=== PATIENT | female | born 1980 | race Caucasian/White ===

== ENCOUNTER 2018-07-06 12:53 | Emergency (ER) | payer BC, SELFPAY ==
[2018-07-06] MEDS ORDERED: ONDANSETRON 4 MG/2 ML VIAL ONE (13:13)
[2018-07-06] MEDS ORDERED: MORPHINE 4 MG/ML SYR ONE ×2 (13:13→13:49)
[2018-07-06] MEDS ORDERED: NA CHLORIDE 0.9% 1,000 ML ONE ×2 (13:13→15:36)
[2018-07-06 13:25] LABS: Absolute Lymphocytes (CBC) 1.2 K/uL (0.7-4.9); Absolute Monocytes 0.7 K/uL (0.1-1.3); Absolute Neutrophil 9.2 K/uL (1.8-8.0); Basophils % 0.3 % (0-1.3); Eosinophils % 1.1 % (0-4.4); Hematocrit 49.1 % (36.0-45.0); Lymphocytes % 10.8 % (15.3-44.8); MCH 29.8 pg (27.0-35.0); MCV 90.8 fL (80-100); MPV 9.5 fL (7.6-11.3); RBC Red Blood Cell Count 5.41 M/uL (3.86-4.86)
[2018-07-06 13:42] LABS: Albumin 4.3 g/dL (3.4-5.0); Bilirubin Direct 0.2 mg/dL (0-0.2); Bilirubin Total 0.5 mg/dL (0.2-1.0); Protein, Total 8.9 g/dL (6.4-8.2)
[2018-07-06] MEDS ORDERED: PROMETHAZINE 25 MG/ML VIAL ONE (14:45)
[2018-07-06 15:05] LABS: Urine Blood TRACE (NEG); Urine Glucose NEGATIVE (NEG); Urine Protein 1+ (NEG); Urine Specific Gravity 1.015 (1.005-1.030); Urine pH 8.5 (5.0-7.0)
--- NOTE | 2018-07-06 15:13 | RAD REPORT ---
EXAM DESCRIPTION: CT - Stone Protocol - 07/06/2018 2:56 pm CLINICAL HISTORY: Abdominal pain. Right flank pain COMPARISON: November 2017 TECHNIQUE: Computed axial tomography of the abdomen pelvis was obtained without oral or IV contrast. Lack of IV and oral contrast limits evaluation of solid organs, bowel, and vessels. Coronal reformat jacoby images were obtained and reviewed. All CT scans are performed using dose optimization technique as appropriate and may include automated exposure control or mA/KV adjustment according to patient size. FINDINGS: A right renal calculus is not seen. An ureteral calculus is not noted. A bladder calculus is not present. Two tiny nonobstructing left renal calculi are noted. The liver, spleen, pancreas and adrenals appear grossly normal An IUD is in place. A minimal amount of free fluid is noted. The appendix is not clearly seen. IMPRESSION: Nonobstructing left renal calculi
[2018-07-06 15:17] LABS: Urine Bacteria <20 /HPF (<20); Urine Culture Reflex Order NOT NEEDED; Urine Mucus 4+ /HPF (NONE SEEN); Urine RBC <5 /HPF (NONE SEEN)
[2018-07-06] MEDS ORDERED: MEPERIDINE HCL 50 MG/ML AMP ONE (15:44)
--- NOTE | 2018-07-06 16:05 | ER ---
Nurse's Notes [facility] Name: Huy Barba Age: 37 yrs Sex: Female : 1980 Arrival Date: 07/06/2018 Time: 12:55 Bed 7 Private MD: Katie Sexton C Diagnosis: Nephrolithiasis Presentation: 07/06 13:04 Presenting complaint: Patient states: Right flank pain that started this AM with N/V. aj Reports no urine output since yesterday. Transition of care: patient was not received from another setting of care. Onset of symptoms was July 06, 2018. Risk Assessment: Do you want to hurt yourself or someone else? Patient reports no desire to harm self or others. Initial Sepsis Screen: Does the patient meet any 2 criteria? No. Patient's initial sepsis screen is negative. Does the patient have a suspected source of infection? No. Patient's initial sepsis screen is negative. Care prior to arrival: None. 13:04 Method Of Arrival: Wheelchair 13:04 Acuity: GILMER 3 aj Triage Assessment: 13:05 General: Appears in no apparent distress. uncomfortable, Behavior is calm, cooperative, aj appropriate for age. Pain: Complains of pain in posterior aspect of right lateral abdomen and anterior aspect of right lateral abdomen. Neuro: Level of Consciousness is awake, alert, obeys commands, Oriented to person, place, time, situation, Appropriate for age. Respiratory: Airway is patent Respiratory effort is even, unlabored, Respiratory pattern is regular, symmetrical. GI: Abdomen is non-distended, obese. GI: Reports nausea, vomiting. : Reports pain in right flank(s). : Reports. Derm: Skin is intact, is healthy with good turgor, Skin is pink, warm \T\ dry. normal. 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 - Social history:: Smoking status: Patient uses tobacco products, smokes one-half pack cigarettes per day. - Ebola Screening: : Patient negative for fever greater than or equal to 101.5 degrees Fahrenheit, and additional compatible Ebola Virus Disease symptoms Patient denies exposure to infectious person Patient denies travel to an Ebola-affected area in the 21 days before illness onset No symptoms or risks identified at this time. - Family history:: not pertinent. - Hospitalizations: : No recent hospitalization is reported. Screenin:08 Abuse screen: Denies threats or abuse. Nutritional screening: No deficits noted. tw2 Tuberculosis screening: No symptoms or risk factors identified. Fall Risk None identified. Assessment: 13:08 GI: Bowel sounds present X 4 quads. Abd is soft Abdomen is tender to palpation in right cc3 mid back and anterior aspect of right lateral abdomen and posterior aspect of right lateral abdomen. 13:35 Reassessment: informed Dr. Galeano that patient still cannot pass urine, that patient cc3 feels bloated, and that the right flank pain scale is unchanged and he's aware. 13:35 Reassessment: No changes from previously documented assessment. Patient and/or family cc3 updated on plan of care and expected duration. Pain level reassessed. Patient is alert, oriented x 3, equal unlabored respirations, skin warm/dry/pink. 14:40 Reassessment: Patient and/or family updated on plan of care and expected duration. Pain cc3 level reassessed. Patient is alert, oriented x 3, equal unlabored respirations, skin warm/dry/pink. still in pain; straight cath done;. 14:52 Reassessment: wheeled to CT:. cc3 15:15 Reassessment: back from CT;. hj 15:48 Reassessment: Patient and/or family updated on plan of care and expected duration. Pain hj level reassessed. Patient is alert, oriented x 3, equal unlabored respirations, skin warm/dry/pink. medicated as ordered;. 16:30 Reassessment: Patient and/or family updated on plan of care and expected duration. Pain hj level reassessed. Patient is alert, oriented x 3, equal unlabored respirations, skin warm/dry/pink. D/Cinstructions given;. Vital Signs: 13:05 BP 119 / 73; Pulse 99; Resp 22; Temp 97.7; Pulse Ox 96% on R/A; Weight 83.91 kg; Height aj 5 ft. 4 in. (162.56 cm); 13:45 BP 119 / 97; Pulse 65; Resp 22; Pulse Ox 99% on R/A; Pain 8/10; cc3 14:52 BP 130 / 72; Pulse 67; Resp 18; Pulse Ox 100% on R/A; cc3 15:49 BP 116 / 75; Pulse 69; Resp 18; Pulse Ox 100% on R/A; hj 13:05 Body Mass Index 31.75 (83.91 kg, 162.56 cm) ED Course: 12:55 Patient arrived in ED. mr 12:56 Katie Sexton MD is Private Physician. mr 13:02 Carlos Galeano MD is Attending Physician. rn 13:02 Jameson Zhang PA is PHCP. cp 13:04 Triage completed. aj 13:05 Arm band placed on left wrist. Patient placed in an exam room, on a stretcher. aj 13:07 Lakesha Oneill is Primary Nurse. cc3 13:08 Bed in low position. Call light in reach. Pulse ox on. NIBP on. tw2 13:08 Inserted saline lock: 22 gauge in right antecubital area, using aseptic technique. tw2 Blood collected. 13:35 Radiology exam delayed due to test not completed at this time. 13:57 Test, Serum Sent. cc3 14:45 Bladder scan completed. 40 ml. cc3 14:46 Straight cath inserted, using sterile technique, Returned ellie urine. Patient cc3 tolerated well. 14:50 Urine Microscopic Only Sent. cc3 14:54 CT completed. Patient tolerated procedure well. Patient moved to CT via wheelchair. Patient moved back from CT. 14:55 CT Stone Protocol In Process Unspecified. EDMS 16:05 Selene Campbell MD is Referral Physician. rn 16:29 No provider procedures requiring assistance completed. IV discontinued, intact, hj bleeding controlled, No redness/swelling at site. Pressure dressing applied. Administered Medications: 13:08 Drug: NS 0.9% 1000 ml Route: IV; Rate: 1000 ml; Site: right antecubital; cc3 16:32 Follow up: IV Status: Completed infusion; IV Intake: 1500ml hj 13:20 Drug: Zofran 4 mg Route: IVP; Site: right antecubital; cc3 13:54 Follow up: Response: No adverse reaction; Nausea is decreased cc3 13:23 Drug: morphine 4 mg Route: IVP; Site: right antecubital; cc3 13:43 Follow up: Response: No adverse reaction; Pain is unchanged, physician notified cc3 13:45 Drug: morphine 4 mg Route: IVP; Site: right antecubital; cc3 14:02 Follow up: Response: No adverse reaction; Pain is decreased hj 14:44 Drug: Phenergan 25 mg Route: IVP; Site: right antecubital; cc3 14:44 Follow up: Response: No adverse reaction; Nausea is decreased cc3 15:29 Drug: NS 0.9% 1000 ml Route: IV; Rate: 1000 ml; Site: right antecubital; hj 16:31 Follow up: IV Status: Order to discontinue infusion; IV Intake: 700ml hj 15:35 Drug: Demerol 50 mg Route: IVP; Site: right antecubital; hj 16:31 Follow up: Response: No adverse reaction; Pain is decreased hj Point of Care Testing: Urine : 14:45 hCG Reading: Negative; cc3 Intake: 16:31 IV: 700ml; Total: 700ml. hj 16:32 IV: 1500ml; Total: 2200ml. hj Outcome: 16:05 Discharge ordered by . rn 16:30 Discharged to home ambulatory, with family. hj 16:30 Condition: stable 16:30 Discharge instructions given to patient, family, Instructed on discharge instructions, follow up and referral plans. medication usage, Demonstrated understanding of instructions, follow-up care, medications, Prescriptions given X 4. 16:33 Patient left the ED. hj Signatures: Dispatcher [employer] EDMS Jumana Johnson RN RN aj Rivera, Maria mr BeattyApril Roman, MD MD rn Joaquin, Henry, RN RN hj Page, Corey, PA PA cp Wise, Tara, RN RN tw2 Lakesha Oneill cc3
--- NOTE | 2018-07-06 16:05 | EDPHYS ---
Physician Documentation [facility] Name: Huy Barba Age: 37 yrs Sex: Female : 1980 Arrival Date: 07/06/2018 Time: 12:55 Bed 7 Private MD: Katie Sexton C ED Physician Carlos Galeano HPI: 07/06 13:09 This 37 yrs old Female presents to ER via Wheelchair with complaints of rn Possible Kidney Stone. 13:09 The patient complains of pain in the right mid back. The pain does not radiate. Onset: rn The symptoms/episode began/occurred this morning. Modifying factors: The symptoms are alleviated by nothing. the symptoms are aggravated by nothing. Severity of pain: At its worst the pain was moderate in the emergency department the pain is unchanged. The patient has experienced similar episodes in the past. Reports right flank pain, non-radiating, assoc with nausea/vomiting/diarrhea/decreased urine production. + hx of kidney stones.. 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 - Social history:: Smoking status: Patient uses tobacco products, smokes one-half pack cigarettes per day. - Ebola Screening: : Patient negative for fever greater than or equal to 101.5 degrees Fahrenheit, and additional compatible Ebola Virus Disease symptoms Patient denies exposure to infectious person Patient denies travel to an Ebola-affected area in the 21 days before illness onset No symptoms or risks identified at this time. - Family history:: not pertinent. - Hospitalizations: : No recent hospitalization is reported. ROS: 13:09 Constitutional: Negative for fever, chills, and weight loss, Eyes: Negative for injury, rn pain, redness, and discharge, Cardiovascular: Negative for chest pain, palpitations, and edema, Respiratory: Negative for shortness of breath, cough, wheezing, and pleuritic chest pain, Abdomen/GI: + nausea/vomiting/diarrhea Back: + right flank pain MS/Extremity: Negative for injury and deformity, Skin: Negative for injury, rash, and discoloration, Neuro: Negative for headache, tingling, and seizure. Exam: 13:09 Constitutional: This is a well developed, well nourished patient who is awake, alert, rn + crying and trying to throw up Head/Face: Normocephalic, atraumatic. ENT: MMM Cardiovascular: Regular rate. No gallops, murmurs, or rubs. No pulse deficits. Respiratory: hyperventilating, clear bilateral lung khoury Abdomen/GI: soft, non-tender Back: + right CVAT MS/ Extremity: Pulses equal, no cyanosis. Neurovascular intact. Full, normal range of motion. Equal circumference. Neuro: Awake and alert, GCS 15, oriented to person, place, time, and situation. Cranial nerves II-XII grossly intact. Motor strength 5/5 in all extremities. Sensory grossly intact. Cerebellar exam normal. Normal gait. Vital Signs: 13:05 BP 119 / 73; Pulse 99; Resp 22; Temp 97.7; Pulse Ox 96% on R/A; Weight 83.91 kg; Height aj 5 ft. 4 in. (162.56 cm); 13:45 BP 119 / 97; Pulse 65; Resp 22; Pulse Ox 99% on R/A; Pain 8/10; cc3 14:52 BP 130 / 72; Pulse 67; Resp 18; Pulse Ox 100% on R/A; cc3 15:49 BP 116 / 75; Pulse 69; Resp 18; Pulse Ox 100% on R/A; hj 13:05 Body Mass Index 31.75 (83.91 kg, 162.56 cm) aj MDM: 13:02 Patient medically screened. rn 15:38 ED course: Pt improved, not pain free but improved, states has had about 5-6 episodes rn similar to this with kidney stones, this is identical to 1 previous episode with stones when she got this bad, CT stone protocol shows bilateral nephrolithiasis but no stones in ureter, no other acute pathology. Not . Will redose pain meds, given more fluids for dehydration, nausea is resolved, will dc home. . 16:04 Differential diagnosis: nephrolithiasis, pyelonephritis, UTI. Data reviewed: vital rn signs, nurses notes, and as a result, I will discharge patient. Counseling: I had a detailed discussion with the patient and/or guardian regarding: the historical points, exam findings, and any diagnostic results supporting the discharge/admit diagnosis, lab results, radiology results, the need for outpatient follow up, to return to the emergency department if symptoms worsen or persist or if there are any questions or concerns that arise at home. Response to treatment: the patient's symptoms have markedly improved after treatment, and as a result, I will discharge patient. Special discussion: I discussed with the patient/guardian in detail that at this point there is no indication for admission to the hospital. It is understood, however, that if the symptoms persist or worsen the patient needs to return immediately for re-evaluation. Based on the history and exam findings, there is no indication for further emergent testing or inpatient evaluation. I discussed with the patient/guardian the need to see the urologist for further evaluation of the symptoms. 07/06 13:08 Order name: Basic Metabolic Panel; Complete Time: 13:56 07/06 13:08 Order name: CBC with Diff; Complete Time: 13:42 rn 07/06 13:08 Order name: Hepatic Function; Complete Time: 13:56 rn 07/06 13:08 Order name: Lipase; Complete Time: 13:56 rn 07/06 13:08 Order name: Urine Microscopic Only; Complete Time: 15:35 rn 07/06 13:09 Order name: Urine Culture rn 07/06 13:09 Order name: CT Stone Protocol; Complete Time: 15:16 rn 07/06 13:42 Order name: Test, Serum; Complete Time: 15:07 rn 07/06 14:50 Order name: Urine Dipstick--Ancillary (enter results); Complete Time: 15:07 ag 07/06 14:50 Order name: Urine --Ancillary (enter results); Complete Time: 15:07 ag 07/06 13:08 Order name: Urine Test (obtain specimen); Complete Time: 14:50 rn 07/06 13:08 Order name: IV Saline Lock; Complete Time: 13:13 rn 07/06 13:08 Order name: Labs collected and sent; Complete Time: 13:24 rn 07/06 13:08 Order name: Urine Dipstick-Ancillary (obtain specimen); Complete Time: 14:50 rn 07/06 14:50 Order name: Straight Cath; Complete Time: 14:51 cc3 Administered Medications: 13:08 Drug: NS 0.9% 1000 ml Route: IV; Rate: 1000 ml; Site: right antecubital; cc3 16:32 Follow up: IV Status: Completed infusion; IV Intake: 1500ml hj 13:20 Drug: Zofran 4 mg Route: IVP; Site: right antecubital; cc3 13:54 Follow up: Response: No adverse reaction; Nausea is decreased cc3 13:23 Drug: morphine 4 mg Route: IVP; Site: right antecubital; cc3 13:43 Follow up: Response: No adverse reaction; Pain is unchanged, physician notified cc3 13:45 Drug: morphine 4 mg Route: IVP; Site: right antecubital; cc3 14:02 Follow up: Response: No adverse reaction; Pain is decreased hj 14:44 Drug: Phenergan 25 mg Route: IVP; Site: right antecubital; cc3 14:44 Follow up: Response: No adverse reaction; Nausea is decreased cc3 15:29 Drug: NS 0.9% 1000 ml Route: IV; Rate: 1000 ml; Site: right antecubital; hj 16:31 Follow up: IV Status: Order to discontinue infusion; IV Intake: 700ml hj 15:35 Drug: Demerol 50 mg Route: IVP; Site: right antecubital; hj 16:31 Follow up: Response: No adverse reaction; Pain is decreased hj Point of Care Testing: Urine : 14:45 hCG Reading: Negative; cc3 Disposition: 07/06/18 16:05 Discharged to Home. Impression: Nephrolithiasis. - Condition is Stable. - Discharge Instructions: Dehydration, Adult, Kidney Stones. - Prescriptions for Zofran ODT 4 mg Oral tablet,disintegrating - place 1 tablet by TRANSLINGUAL route every 8 hours As needed; 20 tablet. Cipro 500 mg Oral Tablet - take 1 tablet by ORAL route every 12 hours for 10 days; 20 tablet. Ibuprofen 800 mg Oral Tablet - take 1 tablet by ORAL route every 12 hours As needed take with food; 20 tablet. Tylenol- Codeine #3 300-30 mg Oral Tablet - take 1 tablet by ORAL route every 6 hours As needed; 15 tablet. - Medication Reconciliation Form, Thank You Letter, Antibiotic Education, Prescription Opioid Use form. - Follow up: Selene Campbell; When: As needed; Reason: Recheck today's complaints, Re-evaluation by your physician. - Problem is new. - Symptoms have improved. Signatures: Dispatcher [employer] Jumana Carlin, RN Carlos Meyer MD MD rn Joaquin, Henry, RN RN hj Cordel, Charlene cc3 Corrections: (The following items were deleted from the chart) 16:33 16:05 07/06/2018 16:05 Discharged to Home. Impression: Nephrolithiasis. Condition is hj Stable. Discharge Instructions: Dehydration, Adult, Kidney Stones. Prescriptions for Zofran ODT 4 mg Oral tablet,disintegrating - place 1 tablet by TRANSLINGUAL route every 8 hours As needed; 20 tablet, Cipro 500 mg Oral Tablet - take 1 tablet by ORAL route every 12 hours for 10 days; 20 tablet, Ibuprofen 800 mg Oral Tablet - take 1 tablet by ORAL route every 12 hours As needed take with food; 20 tablet, Tylenol-Codeine #3 300-30 mg Oral Tablet - take 1 tablet by ORAL route every 6 hours As needed; 15 tablet. and Forms are Medication Reconciliation Form, Thank You Letter, Antibiotic Education, Prescription Opioid Use. Follow up: Selene Campbell; When: As needed; Reason: Recheck today's complaints, Re-evaluation by your physician. Problem is new. Symptoms have improved. rn
== END 2018-07-06 16:33 | disposition home or self-care (01) ==
LOC: ER 12:53
DX: N20.0 Calculus of kidney (principal); F17.210 Nicotine dependence, cigarettes, uncomplicated; F90.9 Attention-deficit hyperactivity disorder, unspecified type; Z87.442 Personal history of urinary calculi; Z88.6 Allergy status to analgesic agent; Z88.8 Allergy status to other drugs, medicaments and biological substances
CPT/HCPCS: 36415; 51702; 74176; 76377; 80048; 80076; 81003; 81015; 81025; 83690; 84703; 85025; 87086; 87088; 96361; 96374; 96375; 99284; J2175; J2405; J2550; J7030

== ENCOUNTER 2021-11-24 22:13 | Emergency (ER) | payer BC, SELFPAY ==
[2021-11-24] MEDS ORDERED: NALOXONE HCL 2 MG/2 ML VIAL ONE (22:40)
[2021-11-24 23:36] LABS: Absolute Lymphocytes (CBC) 1.9 K/uL (0.7-4.9); Hematocrit 40.6 % (36.0-45.0); Lymphocytes % 28.9 % (15.3-44.8); MPV 7.9 fL (7.6-11.3); RBC Red Blood Cell Count 4.47 M/uL (3.86-4.86)
[2021-11-24 23:40] LABS: Protime INR 1.01
[2021-11-24 23:41] LABS: Urine Blood Trace-intact (Negative); Urine Glucose Negative (Negative); Urine Protein Negative (Negative)
[2021-11-25 00:18] LABS: ALT/SGPT 33 U/L (12-78); Albumin 3.3 g/dL (3.4-5.0); Alkaline Phosphatase 91 U/L (45-117); BUN Blood Urea Nitrogen 16 mg/dL (7-18); Bicarbonate 25 mmol/L (21-32); Bilirubin Direct < 0.1 mg/dL (0-0.2); Bilirubin Total 0.2 mg/dL (0.2-1.0); Glucose Level 106 mg/dL (74-106); Protein, Total 7.9 g/dL (6.4-8.2); Sodium Level 139 mmol/L (136-145)
[2021-11-25 00:19] LABS: Barbiturates NEGATIVE (NEGATIVE); Benzodiazepines POSITIVE (NEGATIVE); Cocaine NEGATIVE (NEGATIVE); METHAMPHETAM NEGATIVE (NEGATIVE); Methadone NEGATIVE (NEGATIVE); Opiates NEGATIVE (NEGATIVE); Phencyclidine NEGATIVE (NEGATIVE); THC Cannibis NEGATIVE (NEGATIVE)
[2021-11-25 00:20] LABS: AST/SGOT 15 U/L (15-37); Potassium 4.2 mmol/L (3.5-5.1)
--- NOTE | 2021-11-25 00:45 | EDPHYS ---
Physician Documentation [facility] Name: Huy Barba Age: 41 yrs Sex: Female : 1980 Arrival Date: 11/24/2021 Time: 22:17 Bed 17 Private MD: ED Physician Carlos Galeano HPI: 11/24 22:23 This 41 yrs old Female presents to ER via EMS with complaints of Possible Overdose. pm1 22:23 The patient presents to the emergency department with a possible overdose. Context: the pm1 OD/poisoning occurred at at home, Psychiatric history: the patient has a known psychiatric disorder, depression, anxiety, Previous OD/poisoning history: It is unknown if the patient has had similar previous episodes. Associated signs and symptoms: Pertinent positives: decreased level of consciousness. Severity of symptoms: in the emergency department the symptoms are unchanged. It is unknown whether or not the patient has had similar symptoms in the past. It is unknown whether or not the patient has recently seen a physician. 22:23 Patient to the ER by EMS after she was found by family 1940 with decreased pm1 responsiveness. Family reported to EMS that she told multiple family members that she loved them earlier today which is not apparently something that she says regularly . 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 - Social history:: Smoking status: unknown. ROS: 22:34 Constitutional: Negative for fever, chills, and weight loss, Cardiovascular: Negative pm1 for chest pain, palpitations, and edema, Respiratory: Negative for shortness of breath, cough, wheezing, and pleuritic chest pain, Abdomen/GI: Negative for abdominal pain, nausea, vomiting, diarrhea, and constipation, MS/Extremity: Negative for injury and deformity, Skin: Negative for injury, rash, and discoloration. 22:34 Neuro: Positive for altered mental status. 22:34 Unable to obtain ROS due to altered mental status, report obtained from EMS. Exam: 22:34 Head/Face: Normocephalic, atraumatic. pm1 22:34 Skin: Warm, dry with normal turgor. Normal color with no rashes, no lesions, and no evidence of cellulitis. MS/ Extremity: Pulses equal, no cyanosis. Neurovascular intact. Full, normal range of motion. 22:34 Constitutional: The patient appears in no acute distress, non-diaphoretic, non-toxic, well developed, well hydrated, well groomed, well nourished, sleepy and awakening to painful stimuli, sternal rub 22:34 Eyes: Exam is negative for acute changes, Pupils: no acute changes, normal size, normal reaction to light, Conjunctiva: no acute changes, no injection, Sclera: no acute changes, icterus, is not appreciated. 22:34 Cardiovascular: Exam negative for acute changes, Rate: normal, Rhythm: regular, Pulses: no pulse deficits are appreciated, Heart sounds: normal. 22:34 Respiratory: Exam negative for acute changes, respiratory distress, shortness of breath, Breath sounds: are clear throughout. 22:34 Abdomen/GI: Inspection: obese Palpation: abdomen is soft and non-tender, in all quadrants. Vital Signs: 22:24 BP 119 / 81; Pulse 68; Resp 18; Pulse Ox 98% on R/A; mk 23:08 BP 125 / 86; Pulse 67; Resp 18; Pulse Ox 100% on R/A; mk 11/25 00:10 BP 106 / 55; Pulse 69; Resp 18; Pulse Ox 99% on R/A; mk 01:10 BP 97 / 53; Pulse 74; Resp 18; Pulse Ox 99% ; mk 02:10 BP 111 / 86; Pulse 67; Resp 18; Pulse Ox 99% on R/A; mk 03:03 BP 115 / 80; Pulse 66; Resp 16; Pulse Ox 98% on R/A; mk 04:08 BP 106 / 61; Pulse 71; Resp 19; Pulse Ox 100% on R/A; mk 09:22 BP 121 / 62; Pulse 74; Resp 18; Temp 98.4(O); Pulse Ox 99% on R/A; cano 09:26 Weight 99.79 kg; Height 5 ft. 4 in. (162.56 cm); cano 11/26 03:31 BP 125 / 72; Pulse 75; Resp 16; Pulse Ox 100% on R/A; kd3 08:06 BP 117 / 49; Pulse 59; Resp 16; Temp 98.1(O); Pulse Ox 97% on R/A; mh5 11/25 09:26 Body Mass Index 37.76 (99.79 kg, 162.56 cm) cano Memo Coma Score: 11/24 22:10 Eye Response: to pain(2). Verbal Response: incomprehensible(2). Motor Response: mk withdraws from pain(4). Total: 8. 23:08 Eye Response: to pain(2). Verbal Response: inappropriate words(3). Motor Response: mk localizes pain(5). Total: 10. 11/25 00:10 Eye Response: to voice(3). Verbal Response: confused(4). Motor Response: obeys mk commands(6). Total: 13. 01:10 Eye Response: to voice(3). Verbal Response: oriented(5). Motor Response: obeys mk commands(6). Total: 14. 02:10 Eye Response: to voice(3). Verbal Response: oriented(5). Motor Response: obeys mk commands(6). Total: 14. 03:03 Eye Response: to voice(3). Verbal Response: oriented(5). Motor Response: obeys mk commands(6). Total: 14. 04:08 Eye Response: to voice(3). Verbal Response: oriented(5). Motor Response: obeys mk commands(6). Total: 14. MDM: 11/24 22:23 Patient medically screened. pm1 22:40 ED course: Patient reports taking her sleeping medications - patient unable to recall pm1 the name or number of pills or time. Patient was attempting to "sleep to make all the pain go away". 23:30 ED course: Patient now reports that she took her xanax in attempt to go to sleep pm1 without waking up. 11/25 00:43 Data reviewed: vital signs. Data interpreted: Pulse oximetry: on room air is 100 %. pm1 Interpretation: normal. 00:43 Counseling: I had a detailed discussion with the patient and/or guardian regarding: the pm1 historical points, exam findings, and any diagnostic results supporting the discharge/admit diagnosis, the need to transfer to another facility, [facility] does not immediately have the required specialist. 09:41 ED course: Doc-to-doc performed \\T\\ [id number], accepted for transfer.. rn 11/26 18:20 ED course: Patient requested to go home, still emotional, had [facility] reevaluate rn her, their official recommendation is still inpatient admission. Patient still on waiting list.. 11/24 22:23 Order name: Acetaminophen pm11/24 22:23 Order name: Basic Metabolic Panel pm11/24 22:23 Order name: CBC with Diff 11/24 22:23 Order name: ETOH Level pm11/24 22:23 Order name: Hepatic Function; Complete Time: 00:44 pm1 11/24 22:23 Order name: PT-INR; Complete Time: 23:53 pm1 11/24 22:23 Order name: Ptt, Activated; Complete Time: 23:53 pm1 11/24 22:23 Order name: Salicylate; Complete Time: 01:31 pm1 11/24 22:23 Order name: Urine Drug Screen; Complete Time: 00:44 pm1 11/24 22:24 Order name: Acetaminophen Level; Complete Time: 00:44 EDMS 11/24 22:24 Order name: Basic Metabolic Panel; Complete Time: 00:44 EDMS 11/24 22:24 Order name: CBC with Automated Diff; Complete Time: 23:57 EDMS 11/24 22:24 Order name: Alcohol Serum/Plasma; Complete Time: 00:44 EDMS 11/24 22:23 Order name: CT Head Brain wo Cont; Complete Time: 15:01 pm1 11/24 23:34 Order name: SARS-COV-2 RT PCR; Complete Time: 00:44 EDMS 11/24 23:41 Order name: Urine Dipstick-Ancillary; Complete Time: 23:53 EDMS 11/25 07:28 Order name: Diet Finger Food; Complete Time: 07:28 bd 11/25 13:24 Order name: Diet Finger Food; Complete Time: 13:24 bd 11/25 16:11 Order name: Diet Finger Food; Complete Time: 16:12 bd 11/26 07:27 Order name: Diet Finger Food; Complete Time: 07:28 bd 11/26 12:54 Order name: Diet Finger Food; Complete Time: 12:54 bd 11/26 15:37 Order name: Diet Finger Food; Complete Time: 15:38 bd 11/24 22:23 Order name: EKG - Nurse/Tech; Complete Time: 23:06 pm1 11/24 22:23 Order name: IV Saline Lock; Complete Time: 23:06 pm1 11/24 22:23 Order name: Labs collected and sent; Complete Time: 23:06 pm1 11/24 22:23 Order name: Suicide Precautions; Complete Time: 23:06 pm1 11/24 22:23 Order name: Suicide Screening ([place]); Complete Time: 23:05 pm1 11/24 22:23 Order name: Urine Dipstick-Ancillary (obtain specimen); Complete Time: 23:05 pm1 11/24 22:23 Order name: Urine Test (obtain specimen); Complete Time: 23:05 pm1 Administered Medications: 11/24 22:35 Drug: NARcan (naloxone) 2 mg Route: IVP; Site: left hand; 23:27 Follow up: Response: No adverse reaction; RASS: Moderate sedation (-3) 23:26 Drug: NS 0.9% 1000 ml Route: IV; Rate: 125 ml/hr; Site: left hand; 11/26 08:34 Follow up: IV Status: Completed infusion; IV Intake: 1000ml ; no fluids on pt at start eo2 of this shift 11/25 18:11 Drug: Tessalon Perle (benzonatate) 100 mg Route: PO; 18:11 Follow up: Response: No adverse reaction cano 11/26 08:28 Follow up: Response: No adverse reaction eo2 01:22 Drug: Tessalon Perle (benzonatate) 100 mg Route: PO; kd3 08:28 Follow up: Response: No adverse reaction eo2 12:20 Drug: Tessalon Perle (benzonatate) 100 mg Route: PO; eo2 13:20 Follow up: Response: No adverse reaction eo2 12:20 Drug: Tylenol 650 mg Route: PO; eo2 13:20 Follow up: Response: No adverse reaction eo2 Disposition: 11/27 08:06 Co-signature as Attending Physician, Jameson Ghotra MD I agree with the assessment and rosendo plan of care. Disposition Summary: 11/26/21 19:52 Left Against Medical Advice Location: Home sp3 Problem: an acute exacerbation(11/26/21 19:52) sp3 Symptoms: are resolved(11/26/21 19:52) sp3 Condition: Stable(11/26/21 19:52) sp3 Diagnosis - Suicidal ideations(11/26/21 19:52) sp3 Discharge Instructions: - Discharge Summary Sheet sp3 - Suicidal Feelings: How to Help Yourself sp3 Signatures: Dispatcher [employer] EDMS Jameson Ghotra MD MD cha Nieto, Roman, MD MD rn Smirch, Shelby, RN RN ss Will Luther, FLASH WELDER FLASH WELDER pm1 Heike Stone MD MD sp3 Jaycee Murray RN RN kd3 Au-StagerAnne RN Tati Jerome RN HALIMA eo2 Susana Muñoz, RN RN mk Corrections: (The following items were deleted from the chart) 11/24 23:34 22:24 CORONAVIRUS+MR.LAB.BRZ ordered. EDMS EDMS 11/26 18:52 11/25 00:44 pm1 sp3 11/26 18:52 11/25 00:44 Psych Facility pm1 sp3 11/26 18:52 11/25 00:44 Specialty pm1 sp3 11/26 18:52 11/25 00:44 Stable pm1 sp3 11/26 18:52 11/25 00:44 new pm1 sp3 11/26 18:52 11/25 00:44 are unchanged pm1 sp3 11/26 18:52 11/25 00:44 Suicidal ideations pm1 sp3
--- NOTE | 2021-11-25 00:45 | ER ---
Nurse's Notes [facility] Name: Huy Barba Age: 41 yrs Sex: Female : 1980 Arrival Date: 11/24/2021 Time: 22:17 Bed 17 Private MD: Diagnosis: Suicidal ideations Presentation: 11/24 22:24 Chief complaint: EMS states: Pt found down by family around 1940, when EMSarrived pt mk had melissa and only response to sternal rubs. Currently had GCS 8 and coughing and muttering. Coronavirus screen: Vaccine status: Patient reports being unvaccinated. Ebola Screen: Patient negative for fever greater than or equal to 101.5 degrees Fahrenheit, and additional compatible Ebola Virus Disease symptoms. Initial Sepsis Screen: Does the patient meet any 2 criteria? Yes No. Patient's initial sepsis screen is negative. Does the patient have a suspected source of infection? No. Patient's initial sepsis screen is negative. Risk Assessment: Do you want to hurt yourself or someone else? Unable to obtain. Onset of symptoms was November 24, 2021 at 19:40. 22:24 Method Of Arrival: EMS: [facility] 22:24 Acuity: GILMER 2 bb 23:09 Risk Assessment: Do you want to hurt yourself or someone else? Patient reports no mk desire to harm self or others. 23:48 Risk Assessment: Do you want to hurt yourself or someone else? Patient reports mk desire/thoughts of hurting themselves or someone else. Provider notified. Triage Assessment: 22:29 General: Appears in no apparent distress. Behavior is calm. Pain: Unable to use pain mk scale. 22:29 Neuro: Level of Consciousness is lethargic, listless, Oriented to none Matrix Repairer are weak mk bilaterally Facial symmetry appears normal, Pupils are PERRLA, Pupil Size: L 3mm, R 3mm. Cardiovascular: Heart tones S1 S2 Capillary refill < 3 seconds Patient's skin is warm and dry. Pulses are 2+ in right radial artery, right dorsalis pedis artery, left radial artery and left dorsalis pedis artery Rhythm is regular. Respiratory: Airway Trachea Respiratory effort is even, unlabored, Respiratory pattern is regular, symmetrical, Breath sounds are clear. WOOL MERCHANT: 11/25 09:22 LMP N/A - Irregular menses cano Historical: - Allergies: 11/24 22:30 Imitrex; mk 22:30 Toradol; mk 22:30 Tramadol HCl; mk - Home Meds: 22:30 Adderall XR 20 mg Oral cp24 1 cap twice a day [Active]; mk - PMHx: 22:30 ADD/ADHD; Kidney stones; Depressive disorder; Anxiety; mk - Immunization history:: Adult Immunizations unknown. - Social history:: Smoking status: unknown. Screenin:28 Abuse screen: Denies threats or abuse. Nutritional screening: No deficits noted. mk Tuberculosis screening: No symptoms or risk factors identified. Fall Risk None identified. Assessment: 23:10 Reassessment: case [id number] and spoke with Max at [facility] at 2305. 23:10 Neuro: Level of Consciousness is obeys commands, lethargic, Oriented to person, place. Cardiovascular: Heart tones S1 S2 Capillary refill < 3 seconds Patient's skin is warm and dry. Pulses are 2+ in right radial artery, right dorsalis pedis artery, left radial artery and left dorsalis pedis artery Rhythm is regular. GI: Abdomen is non-distended, Bowel sounds present X 4 quads. Abd is soft and non tender X 4 quads. : Urine is clear. Derm: Skin is intact, is healthy with good turgor. Musculoskeletal: Circulation, motion, and sensation intact. Capillary refill < 3 seconds, is > 3 seconds, fingers. toes. Range of motion: intact in all extremities. 11/25 00:05 Reassessment: Patient and/or family updated on plan of care and expected duration. Pain mk level reassessed. more responsive to less stimuli, able to tap on the shoulder to wake up. 01:10 Reassessment: Patient and/or family updated on plan of care and expected duration. Pain mk level reassessed. more responsive now, wakes up to verbal stimuli. 02:08 Reassessment: No changes from previously documented assessment. Patient and/or family mk updated on plan of care and expected duration. Pain level reassessed. spoke to pt's daughter Marimar at [phone], updated on POC w/ permission of pt. 03:08 Reassessment: Patient appears in no apparent distress at this time. No changes from previously documented assessment. Patient and/or family updated on plan of care and expected duration. Pain level reassessed. 04:04 Reassessment: spoke w/ Anupama from [facility], updated her on results, she mk said to continue with symptomatic treatments. 04:16 Reassessment: No changes from previously documented assessment. Patient and/or family mk updated on plan of care and expected duration. Pain level reassessed. 09:24 Reassessment:. cano 09:26 Reassessment: nurse to nurse with Ana Cristina at [facility]. cano 21:23 Reassessment: Patient is alert, oriented x 3, equal unlabored respirations, skin kd3 warm/dry/pink. PT is tearful. therapeutic communication. denies si. General: Appears in no apparent distress. Behavior is crying. 21:54 Reassessment: pt seen sleeping in bed. kd3 23:18 Reassessment: No changes from previously documented assessment. Patient is alert, kd3 oriented x 3, equal unlabored respirations, skin warm/dry/pink. 11/26 03:30 Reassessment: pt expressed discomfort due to coughing. Tessalon Perles administered. kd3 now resting comfortably in bed. 08:29 Reassessment: Pt is aaox4, ambulatory without assist, appears in NAD, when asked if eo2 SI/HI, responded "that's why I'm here, but I want to go home, I'd rather be miserable at home", pt denies HI. Pt reports cough and discomfort in chest from cough per pt, states tolerable at this time. Pt requested breakfast, made aware food will be soon be delivered. Pt reported by night RN to be cooperative all night, no sitter at bedside as pt is front of the nursing station, states she was allowed to use her phone periodically and has requested if she can do the same today. Pt updated on plan- awaiting placement. Comfort measures met, will continue to monitor. 10:00 Reassessment: pt eating breakfast at this time. eo2 10:23 Reassessment: Pt reporting worsening cough, and mild chest pain, Dr. Galeano made aware, eo2 states pt may get cough medication at noon, orders for ibuprofen 600mg PO Once for pain. Will place order and admnister. 10:27 Reassessment: pt with ibuprofen allergy, will make provider aware. eo2 12:30 Reassessment: Pt with lunch tray at bedside, medicated as ordered, provided her cell eo2 phone as requested, pt remains calm and cooperative, states she wants to call her kids. 17:27 Reassessment: Pt requests to speak with attending provider, states she'd like to go eo2 home and see her children, Dr. Galeano made aware. 17:28 Reassessment: RN reassessed pt, pt denies SI/HI, states "that's what brought me here eo2 but I haven't thought about doing anything since the last time I was asked", states "yesterday was just a very bad day", pt noted to be tearful. Pt states "I'm happy my kids are home now and I want to go be with them". Pt requests to speak with provider for evaluation on possible discharge home. Dr. Galeano made aware. 17:57 Reassessment: [facility] on IPAD for reevaluation at this time to determine ss whether or not she is safe to follow up outpatient as we still do not have acceptance at psych facility. 18:19 Reassessment: [facility] still recommends INPATIENT treatment at this time. ss 19:07 Reassessment: Pt made aware of [facility] recommendation for inpatient, pt eo2 verbalized desire to leave, questioned if she had usp order holding her here, pt informed she is here voluntarily. Dr. Galeano made aware pt requests to speak with him. 19:49 Reassessment: pt leaving ama. kd3 Overdose: 11/24 23:09 [place] Suicide Severity Screening: "In the past month, have you wished you were mk or wished you could go to sleep and not wake up?" Patient responds "no." "In the past month, have you actually had any thoughts of killing yourself?" Patient responds "no." "In your lifetime, have you ever done anything, started to do anything, or prepared to do anything to end your life?" Patient responds "no.". 23:48 [place] Suicide Severity Screening: "In the past month, have you wished you were mk or wished you could go to sleep and not wake up?" Patient responds "yes." Based off client's responses, additional C-SSRS screening questions required. "In the past month, have you actually had any thoughts of killing yourself?" Patient responds "yes." Based off client's responses, additional C-SSRS screening questions required. Vital Signs: 22:24 BP 119 / 81; Pulse 68; Resp 18; Pulse Ox 98% on R/A; mk 23:08 BP 125 / 86; Pulse 67; Resp 18; Pulse Ox 100% on R/A; mk 11/25 00:10 BP 106 / 55; Pulse 69; Resp 18; Pulse Ox 99% on R/A; mk 01:10 BP 97 / 53; Pulse 74; Resp 18; Pulse Ox 99% ; mk 02:10 BP 111 / 86; Pulse 67; Resp 18; Pulse Ox 99% on R/A; mk 03:03 BP 115 / 80; Pulse 66; Resp 16; Pulse Ox 98% on R/A; mk 04:08 BP 106 / 61; Pulse 71; Resp 19; Pulse Ox 100% on R/A; mk 09:22 BP 121 / 62; Pulse 74; Resp 18; Temp 98.4(O); Pulse Ox 99% on R/A; cano 09:26 Weight 99.79 kg; Height 5 ft. 4 in. (162.56 cm); cano 11/26 03:31 BP 125 / 72; Pulse 75; Resp 16; Pulse Ox 100% on R/A; kd3 08:06 BP 117 / 49; Pulse 59; Resp 16; Temp 98.1(O); Pulse Ox 97% on R/A; mh5 11/25 09:26 Body Mass Index 37.76 (99.79 kg, 162.56 cm) Memo Coma Score: 11/24 22:10 Eye Response: to pain(2). Verbal Response: incomprehensible(2). Motor Response: mk withdraws from pain(4). Total: 8. 23:08 Eye Response: to pain(2). Verbal Response: inappropriate words(3). Motor Response: mk localizes pain(5). Total: . 11/25 00:10 Eye Response: to voice(3). Verbal Response: confused(4). Motor Response: obeys mk commands(6). Total: 13. 01:10 Eye Response: to voice(3). Verbal Response: oriented(5). Motor Response: obeys mk commands(6). Total: 14. 02:10 Eye Response: to voice(3). Verbal Response: oriented(5). Motor Response: obeys mk commands(6). Total: 14. 03:03 Eye Response: to voice(3). Verbal Response: oriented(5). Motor Response: obeys mk commands(6). Total: 14. 04:08 Eye Response: to voice(3). Verbal Response: oriented(5). Motor Response: obeys mk commands(6). Total: 14. ED Course: 11/24 22:17 Patient arrived in ED. kc5 22:21 Will Luther, WORKFORCE STAFFING ADVISOR is PHCP. pm1 22:21 Jameson Ghotra MD is Attending Physician. pm1 22:23 Susana Muñoz, RN is Primary Nurse. mk 22:28 Triage completed. mk 22:31 Patient has correct armband on for positive identification. Allergy band placed. Placed mk in gown. Bed in low position. Call light in reach. Side rails up X 1. 22:48 Patient placed. mk 22:50 CT Head Brain wo Cont In Process Unspecified. EDMS 23:26 Alcohol Serum/Plasma Sent. mk 23:26 CBC with Automated Diff Sent. mk 23:26 Basic Metabolic Panel Sent. mk 23:26 Acetaminophen Level Sent. mk 23:26 Hepatic Function Sent. mk 23:26 PT-INR Sent. mk 23:27 Ptt, Activated Sent. mk 23:27 Salicylate Sent. mk 23:27 Urine Drug Screen Sent. mk 23:28 Acetaminophen Sent. mk 23:28 Basic Metabolic Panel Sent. mk 23:28 CBC with Diff Sent. mk 23:28 ETOH Level Sent. mk 23:47 Salicylate Sent. mk 11/25 04:21 faxed patient clincals to all available psych facilities. mw2 04:25 EKG completed in triage. Results shown to . mk 04:25 No provider procedures requiring assistance completed. mk 07:32 pt is on wait list at [facility]. bd 09:03 refaxed chart and updated face sheet to [facility]. 09:12 pt declined at [facility], due to no covid beds available. bd 09:13 faxed chart to [facility]. bd 09:41 Attending Physician role handed off by Jameson Ghotra MD rn 09:41 Carlos Galeano MD is Attending Physician. rn 09:42 pt denied at [facility] due to not being in network with pts bd insurance. 10:49 contacted [facility] to have screener evaluate pt. bd 11:20 faxed exclusionary to [facility] as requested by hospital. bd 18:43 pt is on wait list for a covid psych bed at [facility], pt is 8th on the list. bd 18:59 spoke with [facility], chart is still under review. bd 20:47 Primary Nurse role handed off by Susana Muñoz, HALIMA kd3 20:47 Jaycee Murray, HALIMA is Primary Nurse. kd3 11/26 17:18 contacted [facility] to have screener to re evaluate. bd Administered Medications: 11/24 22:35 Drug: NARcan (naloxone) 2 mg Route: IVP; Site: left hand; 23:27 Follow up: Response: No adverse reaction; RASS: Moderate sedation (-3) 23:26 Drug: NS 0.9% 1000 ml Route: IV; Rate: 125 ml/hr; Site: left hand; 11/26 08:34 Follow up: IV Status: Completed infusion; IV Intake: 1000ml ; no fluids on pt at start eo2 of this shift 11/25 18:11 Drug: Tessalon Perle (benzonatate) 100 mg Route: PO; cano 18:11 Follow up: Response: No adverse reaction cano 11/26 08:28 Follow up: Response: No adverse reaction eo2 01:22 Drug: Tessalon Perle (benzonatate) 100 mg Route: PO; kd3 08:28 Follow up: Response: No adverse reaction eo2 12:20 Drug: Tessalon Perle (benzonatate) 100 mg Route: PO; eo2 13:20 Follow up: Response: No adverse reaction eo2 12:20 Drug: Tylenol 650 mg Route: PO; eo2 13:20 Follow up: Response: No adverse reaction eo2 Intake: 08:34 IV: 1000ml; Total: 1000ml. eo2 Outcome: 11/25 00:44 ER care complete, transfer ordered by . pm1 11/26 20:01 Patient left the ED. kd3 Signatures: Dispatcher [employer] EDMS Katia Hernandez Brenda, RN RN bb Carlos Galeano MD MD rn Smirch, Shelby, RN RN ss Will Luther, WORKFORCE STAFFING ADVISOR WORKFORCE STAFFING ADVISOR pm1 Gabi Rojas mh5 [place] 2 Jaycee Murray RN RN kd3 Ayah Morillo kc5 Au-StagerAnne RN RN ha Owoade, Eunice RN RN eo2 Susana Muñoz RN RN Corrections: (The following items were deleted from the chart) 11/24 23:09 23:07 GCS: 11, mk mk 23:34 23:26 CORONAVIRUS+ drawn and sent. EDMS 11/25 04:14 04:05 Cardiovascular: Heart tones S1 S2 Capillary refill < 3 seconds Patient's skin is mk warm and dry. Pulses are 2+ in right radial artery, right dorsalis pedis artery, left radial artery and left dorsalis pedis artery Rhythm is regular 04: 04:05 Neuro: Level of Consciousness is lethargic, listless, Oriented to none Matrix Repairer are mk weak bilaterally Facial symmetry appears normal, Pupils are PERRLA, Pupil Size: L 3mm, R 3mm 04:14 04:05 Respiratory: Airway Trachea Respiratory effort is even, unlabored, Respiratory mk pattern is regular, symmetrical, Breath sounds are clear 04:17 00:05 Reassessment: Patient and/or family updated on plan of care and expected mk duration. Pain level reassessed. Patient is alert, oriented x 3, equal unlabored respirations, skin warm/dry/pink. more responsive to less stimuli, able to tap on the shoulder to wake up. 04:17 01:10 Reassessment: Patient and/or family updated on plan of care and expected mk duration. Pain level reassessed. Patient is alert, oriented x 3, equal unlabored respirations, skin warm/dry/pink. 04:18 04:16 Reassessment: Patient and/or family updated on plan of care and expected mk duration. Pain level reassessed. Patient is alert, oriented x 3, equal unlabored respirations, skin warm/dry/pink. mk 21:58 11/24 22:24 Acuity: GILMER 3 mk bb
[2021-11-25] MEDS ORDERED: NA CHLORIDE 0.9% 1,000 ML ONE (03:54)
--- NOTE | 2021-11-25 12:50 | RAD REPORT ---
EXAM DESCRIPTION: CT Head/Brain Without Contrast CLINICAL HISTORY: AMS. TECHNIQUE: Noncontrast CT through the head was performed. Axial, coronal, and sagittal reconstructio ns were created and sent to PACS. This exam was performed according to our departmental dose-optimiza tion program which includes use of Automated Exposure Control, adjustment of the mA and/or kV accordi ng to patient size and/or use of iterative reconstruction technique. COMPARISON: CT head from November 29, 2017. FINDINGS: The brain parenchyma appears unremarkable. There is no intra-axial or extra-axial bleed se en. There is no mass or mass effect. The ventricles are unremarkable. The orbital contents appear unr emarkable. Mild left maxillary sinus mucosal thickening. The remaining visualized paranasal sinuses and mastoid air cells are patent. No acute fracture is identified. IMPRESSION: No acute intracranial abnormality identified. Electronically signed by: Trish Cantu MD 11/24/2021 11:07 PM PHOTO INTERN Due to temporary technical issues with the PACS/Fluency reporting system, reports are being signed by the in house radiologists without review as a courtesy to insure prompt reporting. The interpreting radiologist is fully responsible for the content of the report.
[2021-11-25] MEDS ORDERED: BENZONATATE 100 MG CAP PO ONE (18:04)
[2021-11-26] MEDS ORDERED: BENZONATATE 100 MG CAP PO ONE ×2 (01:22→12:16)
[2021-11-26] MEDS ORDERED: ACETAMINOPHEN 325 MG TABLET ONE (12:17)
[2021-11-26 20:41] VITALS: BP 117/49; TEMP 98.1; O2SAT 97
== END 2021-11-26 20:01 | disposition left against medical advice (07) ==
LOC: ER 22:13
DX: T42.4X2A Poisoning by benzodiazepines, intentional self-harm, initial encounter (principal); U07.1 COVID-19; F32.A Depression, unspecified; Z88.5 Allergy status to narcotic agent; Z88.8 Allergy status to other drugs, medicaments and biological substances
CPT/HCPCS: 96361; 85025; 80048; 36415; 80320; 80329 ×2; 85610; 80076; 85730; 81003; 80307; 70450; 96374; 99291; 99292; U0003; J2310